=== PATIENT | female | born 1945 | race Caucasian/White ===

== ENCOUNTER 2017-01-26 15:29 | Outpatient (CLI) | payer MEDICARE, OTHER ==
--- NOTE | 2017-01-26 18:23 | RAD ---
CERVICAL SPINE THREE VIEWS: History: Neck surgery. Neck pain. Follow up. Comparison: 01-08-17 FINDINGS: Anterior fixation plate and screws are in place at the C5-6-7 levels. Lucencies surrounding the C5 s crews and separation of the compression plate from the vertebral body by 0.6 cm is similar in appear ance to the previous study. Anterior displacement of the metallic markers associated with the interb clark fusion material at each level is similar. Vertebral body height and alignment are maintained. Os seous structures are demineralized. IMPRESSION: 1. Anterior displacement of the anterior compression plate and interbody fusion material at the C5-6 -7 levels is similar to the most recent exam from 01-08-17. POS: [facility]
== END 2017-01-26 15:30 | disposition home or self-care (01) ==
LOC: TBSIIMAG 15:29
PROVIDERS: ATTEND Neurological Surgery
DX: M50.30 Other cervical disc degeneration, unspecified cervical region (principal); Z98.890 Other specified postprocedural states
CPT/HCPCS: 72040

== ENCOUNTER 2022-02-11 12:22 | Outpatient (CLI) | payer MEDICARE ==
[~2022-02-11 12:22] MED LIST: Iopamidol 370 76% 100 ML VIAL ONE
== END 2022-02-11 12:23 | disposition home or self-care (01) ==
LOC: CT 12:22
PROVIDERS: ATTEND Specialist
DX: R10.32 Left lower quadrant pain (principal)
CPT/HCPCS: 74178; 82565; Q9967